=== PATIENT | female | born 1985 | race Caucasian/White ===

== ENCOUNTER 2016-06-25 19:14 | Emergency (ER) | payer MEDICAID ==
[~2016-06-25] VITALS: Ht 160 cm; Wt 81.1 kg
[~2016-06-25 19:14] MED LIST: FERR325C PO; PREN1TAB49
[2016-06-25 22:08] VITALS: Ht 160 cm; Wt 81.1 kg
--- NOTE | 2016-06-25 22:13 | RADRPT ---
PROCEDURE: XR Chest. CLINICAL INDICATION: Cardiac palpitations and chest pressure. TECHNIQUE: Single frontal view of the chest was obtained COMPARISON: None FINDINGS: The heart and mediastinum are within normal limits. The lungs are clear. There is no pleural effusion or pneumothorax. IMPRESSION: No acute disease. RPTAT: [facility] Physician Alex Date Time Electronically viewed and signed by Physician Alex on 06/25/2016 22:13 RS/
[2016-06-25] MEDS ORDERED: IBUP400T22 PO (22:33)
[2016-06-25] MEDS ORDERED: LORA1TAB PO (22:49)
--- NOTE | 2016-06-25 22:56 | ERD ---
ER Documentation Chief Complaint Date/Time DATE: 06/25/16 TIME: 22:52 Chief Complaint HPI Patient is a 31-year-old female who presents to the ED with chest pressure, palpitation and bilateral numbness and tingling in her arms and legs. She states that she has had these symptoms for 5 days. She also complains of 2 episodes of panic attacks. She complains of anxiety. She denies a history of anxiety. Denies suicidal ideations. denies chest pain, shortness of breath or difficulty breathing. Denies abdominal pain, nausea, vomiting or diarrhea. Denies headache or dizziness. Denies polydipsia polyphagia or polyuria. Denies leg pain or swelling. ROS All systems reviewed and are negative except as per history of present illness. Medications Home Meds Active Scripts Lorazepam* (Lorazepam*) 1 Mg Tablet, 1 MG PO Q8H Y for ANXIETY, #4 TAB Prov:SHANNON CANAS PA-C 06/25/16 Ibuprofen* (Motrin*) 400 Mg Tab, 400 MG PO Q6, #30 TAB Prov:SHANNON CANAS PA-C 06/25/16 Reported Medications Ferrous Sulfate (Iron) 325 Mg Capsr, 325 MG PO 03/16/15 Vits W-Ca,Fe,Fa(<1MG) () 1 Tab Tablet, 1 TAB DAILY 02/06/11 Allergies Allergies: Coded Allergies: No Known Drug Allergies (Verified Allergy, Unknown, 03/16/15) PMhx/Soc Medical and Surgical Hx: pt denies Medical Hx, pt denies Surgical Hx History of Surgery: No Anesthesia Reaction: No Hx Neurological Disorder: No Hx Respiratory Disorders: No Hx Cardiac Disorders: No Hx Psychiatric Problems: No Hx Miscellaneous Medical Probl: No Hx Alcohol Use: No Hx Substance Use: No Hx Tobacco Use: No Smoking Status: Never smoker FmHx Family History: No coronary disease, No diabetes, No other Physical Exam Vitals Vital Signs Date Time Temp Pulse Resp B/P Pulse Ox O2 Delivery O2 Flow Rate FiO2 06/25/16 22:08 98.4 -17.7792 128/ 98 06/25/16 22:05 98.4 84 20 128/76 98 Room Air Physical Exam GENERAL: Well-developed, well-nourished female. Appears in no acute distress. HEAD: Normocephalic, atraumatic. EYES: Pupils are equally reactive bilaterally. EOMs grossly intact. No conjunctival erythema. ENT: Moist mucous membranes. No uvula deviation. No kissing tonsils. No exudates. NECK: Supple. No lymphadenopathy or thyromegaly. No meningismus. negative kernig. negative brudinski. LUNG: Clear to auscultation bilaterally. No rhonchi, wheezing, rales or coarse breath sounds. HEART: Regular rate and rhythm. No murmurs, rubs or gallops. ABDOMEN: No scars, ecchymosis or rashes noted. Soft, nontender, and nondistended. Positive bowel sounds in all four quadrants. No rebound tenderness , no guarding. (-) McBurneys point tenderness. No CVA tenderness. BACK: No midline tenderness. Extremities: Equal pulses bilaterally. No peripheral clubbing, cyanosis or edema. No unilateral leg swelling. NEUROLOGIC: Alert and oriented. Moving all four extremities. 5/5 strength in all extremities. Normal speech. Steady gait. Cranial nerves II through XII intact SKIN: Normal color. Warm and dry. No rashes or lesions. Capillary refill < 2 seconds Results 24 hrs Current Medications Medications (Trade) Dose Ordered Sig/Reyes Route PRN Reason Start Time Stop Time Status Last Admin Dose Admin Lorazepam (Ativan) 1 mg ONCE ONCE PO 06/25/16 23:00 06/25/16 23:01 Procedures/MDM ER COURSE: I kept the patient and/or family informed of laboratory and diagnostic imaging results throughout the emergency room course. EKG, MONITORS, & DIAGNOSTIC IMAGING: [place] [id number] Radiology Main Line: [phone] DIAGNOSTIC IMAGING REPORT Patient: BESSY NG : 1985 Age: 31 Sex: F MR #: [id number] DOS: 06/25/162117 Ordering MD: SHANNON CANAS PA-C Location: [facility] Room/Bed: PROCEDURE: XR Chest. CLINICAL INDICATION: Cardiac palpitations and chest pressure. TECHNIQUE: Single frontal view of the chest was obtained COMPARISON: None FINDINGS: The heart and mediastinum are within normal limits. The lungs are clear. There is no pleural effusion or pneumothorax. IMPRESSION: No acute disease. RPTAT: [facility] Physician Alex Date Time Electronically viewed and signed by Physician Alex on 06/25/2016 22:13 RS/ CC: SHANNON CANAS PA-C EKG performed, read by Dr. Huber 82 bpm, normal sinus rhythm, normal axis, no acute ST segment changes, no T wave inversion MEDICATIONS: Ativan 1 mg. Patient told medication well and stated improvement in symptoms. No adverse reaction LAB INTERPRETATION: Urine test was negative. MEDICAL DECISION MAKING: This is a 31-year-old female who presents with chest pressure, anxiety, body numbness. Vital signs were reviewed. Patient is afebrile. Patient is not hypoxic. Patient is not toxic or ill-appearing. Patient likely has anxiety versus numbness of unknown known etiology. I have low suspicion for any cardiac emergency as her heart score is 0. Low suspicion for ACS, PE, AAA, dissection, DVT. Low suspicion for pneumonia, PE, pneumothorax, ACS, epiglottitis, obstruction, TB, pertussis, meningitis, sepsis. I have low suspicion for diabetes as she does not have polyuria, polydipsia or polyphagia. I do not think a CT scan is warranted at this time as her cranial nerve examination was within normal limits, cranial nerves II through XII intact and she does not show any signs of headache, dizziness or blurry vision. DISCHARGE: At this time, patient is stable for discharge and outpatient management with no new complaints during the ER course. Patient was sent home with ibuprofen and Ativan. Patient will be discharged home with instructions to recheck for new or worsening symptoms such as fever, nausea, weakness, LOC and to follow up with primary care in the next 1-2 days. Patient was advised to return to the ER for any new or worsening symptoms. Plan was discussed and patient and/or family understands and agrees. Home instructions were given. Departure Diagnosis: Primary Impression: Numbness and tingling Condition: Stable Patient Instructions: Numbness Referrals: [facility] YOU HAVE RECEIVED A MEDICAL SCREENING EXAM AND THE RESULTS INDICATE THAT YOU DO NOT HAVE A CONDITION THAT REQUIRES URGENT TREATMENT IN THE EMERGENCY DEPARTMENT. FURTHER EVALUATION AND TREATMENT OF YOUR CONDITION CAN WAIT UNTIL YOU ARE SEEN IN YOUR DOCTORS OFFICE WITHIN THE NEXT 1-2 DAYS. IT IS YOUR RESPONSIBILITY TO MAKE AN APPOINTMENT FOR FOLOW-UP CARE. IF YOU HAVE A PRIMARY DOCTOR --you should call your primary doctor and schedule an appointment IF YOU DO NOT HAVE A PRIMARY DOCTOR YOU CAN CALL OUR PHYSICIAN REFERRAL HOTLINE AT IF YOU CAN NOT AFFORD TO SEE A PHYSICIAN YOU CAN CHOSE FROM THE FOLLOWING [facility] [address] [facility]. [facility] [address] [facility] [facility] [address] [facility]. [facility] [address] [facility]. [facility] [address] [facility]. [facility]. [address] Additional Instructions: Call your primary care doctor TOMORROW for an appointment during the next 1-2 days.See the doctor sooner or return here if your condition worsens before your appointment time. SHANNON CANAS PA-C Jun 25, 2016 22:56
[2016-06-25] MEDS ORDERED: LORAZEPAM 1 MG TAB PO ONE (23:00)
[2016-06-25 23:17] VITALS: BP 124/78; PULSE 86; RESP 20; TEMP 98.4
== END 2016-06-25 22:42 | disposition home or self-care (01) ==
LOC: FTE 19:14
DX: R20.0 Anesthesia of skin (principal); R20.2 Paresthesia of skin
CPT/HCPCS: 71010; 93005; Z7502; Z7610

== ENCOUNTER 2018-11-15 08:30 | Emergency (ER) | payer MEDICAID ==
[~2018-11-15] VITALS: Ht 160 cm; Wt 88.7 kg
[~2018-11-15 08:30] MED LIST changes: +IBUP-1561 PO; +LORA1TAB PO
[2018-11-15 08:34] VITALS: BP 156/82; PULSE 99; RESP 18; Ht 160 cm; Wt 88.7 kg
[2018-11-15] MEDS ORDERED: IBUPROFEN 800 MG TAB PO ONE (09:00)
[2018-11-15] MEDS ORDERED: HYDR-4011 PO (09:17)
[2018-11-15] MEDS ORDERED: NAPR-985 PO (09:17)
[2018-11-15] MEDS ORDERED: CYCL10TA7 PO (09:17)
--- NOTE | 2018-11-15 09:25 | ERD ---
ER Documentation Chief Complaint Chief Complaint lower back pain radiating to lower abdomen x 2 days HPI 33-year-old female presents with lower back pain. Patient states she started her menses and she is having some cramping. She denies any severe pain and denies any dysuria. She denies fevers. She states her pain is generalized to her lower back and some mild pelvic tenderness. She has not taken medications for her symptoms. Denies medical problems. NKDA. Surgical history denies. Social history denies ROS All systems reviewed and are negative except as per history of present illness. Medications Home Meds Active Scripts Cyclobenzaprine Hcl* (Cyclobenzaprine Hcl*) 10 Mg Tablet, 10 MG PO TID, #15 TAB Prov:GIANNA DAVIS PA-C 11/15/18 Naproxen* (Naprosyn*) 500 Mg Tablet, 500 MG PO BID PRN for PAIN AND/OR INFLAMMATION, #30 TAB Prov:GIANNA DAVIS PA-C 11/15/18 Hydrocodone/Acetaminophen ([place] 5-325 Tablet) 1 Each Tablet, 1 TAB PO Q6H PRN for PAIN, #7 TAB Prov:GIANNA DAVIS PA-C 11/15/18 Lorazepam* (Lorazepam*) 1 Mg Tablet, 1 MG PO Q8H PRN for ANXIETY, #4 TAB Prov:SHANNON CANAS PA-C 06/25/16 Ibuprofen* (Motrin*) 400 Mg Tab, 400 MG PO Q6, #30 TAB Prov:SHANNON CANAS PA-C 06/25/16 Reported Medications Ferrous Sulfate (Iron) 325 Mg Capsr, 325 MG PO 03/16/15 Vits W-Ca,Fe,Fa(<1MG) () 1 Tab Tablet, 1 TAB DAILY 02/06/11 Allergies Allergies: Coded Allergies: No Known Drug Allergies (Verified Allergy, Unknown, 03/16/15) PMhx/Soc History of Surgery: No Anesthesia Reaction: No Hx Neurological Disorder: No Hx Respiratory Disorders: No Hx Cardiac Disorders: No Hx Psychiatric Problems: No Hx Miscellaneous Medical Probl: No Hx Alcohol Use: No Hx Substance Use: No Hx Tobacco Use: No Smoking Status: Never smoker FmHx Family History: No diabetes, No coronary disease, No other Physical Exam Vitals Vital Signs Date Temp Pulse Resp B/P (MAP) Pulse Ox O2 O2 Flow FiO2 Time Delivery Rate 11/15/18 98.2 99 18 156/82 100 08:34 (106) Physical Exam GENERAL: The patient is well-appearing, well-nourished, in no acute distress CHEST: Clear to auscultation bilaterally. There are no rales, wheezes or rhonchi. HEART: Regular rate and rhythm. No murmurs, clicks, rubs or gallops. No S3 or S4. ABDOMEN: Normal active bowel sounds. No distention. No organomegaly. Tender to palpation over the suprapubic region with no rebound tenderness. No lateralized tenderness of pelvic region on exam. BACK: Mild tenderness palpation of paraspinous muscles in the lumbar spine. No midline tenderness. EXTREMITIES: Equal pulses bilaterally. There is no peripheral clubbing, cyanosis or edema. No focal swelling or erythema. Full range of motion. Results 24 hrs Laboratory Tests Test 11/15/18 09:10 11/15/18 09:12 POC Beta HCG, Qualitative NEGATIVE Bedside Urine pH (LAB) 6.0 Bedside Urine Protein (LAB) Negative Bedside Urine Glucose (UA) Negative Bedside Urine Ketones (LAB) Negative Bedside Urine Blood 2+ Bedside Urine Nitrite (LAB) Negative Bedside Urine Leukocyte Esterase (L Negative Current Medications Medications Dose Sig/Reyes Start Time Status Last (Trade) Ordered Route PRN Stop Time Admin Dose Reason Admin Ibuprofen 800 mg ONCE ONCE 11/15/18 DC 11/15/18 (Motrin) PO 09:00 09:06 11/15/18 09:01 Procedures/MDM ER course: Urinalysis negative. MDM: 33-year-old female presenting with lower back pain. Patient likely has menstrual cramping. I have low suspicion for acute fracture dislocation. I have low suspicion for cauda equina, discitis or epidural abscess. Patient's pelvic pain is likely associated menstruation I do not feel there is indication for ultrasound at this time. She does not have lateralized pain and tenderness to palpation is minimal. I have low suspicion for pelvic infection or any acute abdominal emergency. Patient is discharged with supportive medications and told to follow-up with primary care within 1 to 2 days for close evaluation. Patient is told if symptoms change or worsen to return immediately to the ER. All questions answered at discharge Departure Diagnosis: Primary Impression: Abdominal cramping Additional Impression: Back pain Condition: Stable Patient Instructions: Back Pain (Acute Or Chronic) Referrals: [facility] YOU HAVE RECEIVED A MEDICAL SCREENING EXAM AND THE RESULTS INDICATE THAT YOU DO NOT HAVE A CONDITION THAT REQUIRES URGENT TREATMENT IN THE EMERGENCY DEPARTMENT. FURTHER EVALUATION AND TREATMENT OF YOUR CONDITION CAN WAIT UNTIL YOU ARE SEEN IN YOUR DOCTORS OFFICE WITHIN THE NEXT 1-2 DAYS. IT IS YOUR RESPONSIBILITY TO MAKE AN APPOINTMENT FOR FOLOW-UP CARE. IF YOU HAVE A PRIMARY DOCTOR --you should call your primary doctor and schedule an appointment IF YOU DO NOT HAVE A PRIMARY DOCTOR YOU CAN CALL OUR PHYSICIAN REFERRAL HOTLINE AT IF YOU CAN NOT AFFORD TO SEE A PHYSICIAN YOU CAN CHOSE FROM THE FOLLOWING [facility] [address] [facility] [address] [facility]. [facility] [address] [facility] [address] [facility] [facility] [address] [facility]. [facility] [address] Additional Instructions: FOLLOW UP WITH YOUR PRIMARY CARE PHYSICIAN TOMORROW.Return to this facility if you are not improving as expected. GIANNA DAVIS PA-C Nov 15, 2018 09:25
== END 2018-11-15 09:22 | disposition home or self-care (01) ==
LOC: FTE 08:30
DX: M54.5 Low back pain (principal); R10.2 Pelvic and perineal pain; R10.30 Lower abdominal pain, unspecified
CPT/HCPCS: 81003; 81025; Z7502; Z7610; 99283